=== PATIENT | male | born 1940 | race Caucasian/White ===

== ENCOUNTER 2017-01-26 11:39 | Inpatient (IN) | payer MEDICARE, BC ==
[2017-01-26] MEDS ORDERED: FUROSEMIDE 40 MG SOL IV ONE (12:00)
[2017-01-26 13:19] LABS: ALBUMIN 2.3 gm/dl (3.4-5.0); CALCIUM 8.7 mg/dl (8.5-10.1); POTASSIUM 4.5 mMol/L (3.5-5.1)
[2017-01-26] MEDS ORDERED: AZITHROMYCIN 250 MG TAB PO ONE (13:26)
[2017-01-26] MEDS ORDERED: CEFTRIAXONE 1 GM PDS ONE (13:50)
[2017-01-26] MEDS: SODIUM CHLORIDE 0.9% FLUSH 10 ML SOL IV SCH ×3 (14:05→20:33)
[2017-01-26] MEDS: CEFTRIAXONE 1 GM (PREMIX) 1 GM/50 ML SOL IV SCH (14:06)
[2017-01-26 15:25] LABS: APPEARANCE,URINE Clear; BILIRUBIN,URINE NEGATIVE (NEGATIVE); COLOR,URINE Yellow; GLUCOSE, URINE (UA) NEGATIVE (NEGATIVE); KETONES,URINE NEGATIVE (NEGATIVE); LEUKOCYTE ESTERASE ,URINE NEGATIVE (NEGATIVE); NITRATE,URINE NEGATIVE (NEGATIVE); OCCULT BLOOD,URINE TRACE INTACT (NEG-TRACE); UROBILINOGEN,URINE 0.2 (0.2-1.0 EU)
[2017-01-26 16:20] LABS: RBC,URINE 0-1 (0-3AV/HPF); WBC,URINE NEG (0-5AV/HPF)
[2017-01-26] MEDS ORDERED: ACETAMINOPHEN 500 MG 500 MG TAB PO PRN (17:52)
[2017-01-26] MEDS ORDERED: ALBUTEROL/IPRATROPIUM 1 VIAL SOL INH PRN (17:52)
[2017-01-26] MEDS ORDERED: FUROSEMIDE 20mg SOL IV ONE (17:52)
[2017-01-26] MEDS ORDERED: ALBUTEROL HFA 60 PUFF/INHALER INH PRN (17:52)
[2017-01-26] MEDS: ASPIRIN EC 81 MG PO SCH (20:33)
[2017-01-26] MEDS: FLUTICASONE INH SCH (20:34)
[2017-01-26] MEDS: SALMETEROL INH SCH (20:34)
[2017-01-26] MEDS: TAMSULOSIN HYDROCHLORIDE 0.4 MG CAP PO SCH (20:34)
[2017-01-26] MEDS: ATORVASTATIN 10 MG TAB PO SCH (20:34)
[2017-01-27] MEDS: SODIUM CHLORIDE 0.9% FLUSH 10 ML SOL IV SCH ×4 (04:34→21:53)
[2017-01-27] MEDS ORDERED: LEVOTHYROXINE SODIUM 50 MCG TAB PO SCH (06:30)
[2017-01-27 07:38] LABS: BASOPHILS % (AUTO) 0 % (0-3); EOSINOPHILS % (AUTO) 3 % (0-9); HEMATOCRIT 32 % (39-53); MEAN CORPUSCULAR VOLUME 91 fL (80-100); NEUTROPHILS % (AUTO) 84.6 % (37-80)
[2017-01-27 07:43] LABS: CALCIUM 8.5 mg/dl (8.5-10.1); POTASSIUM 4.4 mMol/L (3.5-5.1)
[2017-01-27] MEDS ORDERED: FUROSEMIDE 40 MG SOL IV SCH (09:00)
[2017-01-27] MEDS ORDERED: CALCIUM CARBONATE 500 MG TAB PO SCH (09:00)
[2017-01-27] MEDS ORDERED: POMALIDOMIDE 3 MG PO SCH (09:00)
[2017-01-27] MEDS: CALCIUM CARBONATE 500 MG TAB PO SCH (09:34)
[2017-01-27] MEDS: PREDNISONE 10 MG TAB PO SCH (09:36)
[2017-01-27] MEDS: AZITHROMYCIN 250 MG TAB PO SCH (09:36)
[2017-01-27] MEDS: ALLOPURINOL 100 MG TAB PO SCH (09:37)
[2017-01-27] MEDS: SALMETEROL INH SCH (09:37)
[2017-01-27] MEDS: FLUTICASONE INH SCH (09:37)
[2017-01-27] MEDS: FLUTICASONE/SALMETEROL 500/50 60 PUFF DSK INH SCH ×2 (09:37→21:53)
[2017-01-27] MEDS: ALBUTEROL/IPRATROPIUM 1 VIAL SOL INH SCH ×3 (13:08→21:54)
[2017-01-27] MEDS: FUROSEMIDE 40 MG SOL IV SCH (13:14)
[2017-01-27] MEDS: CEFTRIAXONE 1 GM (PREMIX) 1 GM/50 ML SOL IV SCH (13:30)
[2017-01-27] MEDS: TAMSULOSIN HYDROCHLORIDE 0.4 MG CAP PO SCH (21:53)
[2017-01-27] MEDS: ASPIRIN EC 81 MG PO SCH (21:53)
[2017-01-27] MEDS: ATORVASTATIN 10 MG TAB PO SCH (21:54)
[2017-01-28] MEDS: SODIUM CHLORIDE 0.9% FLUSH 10 ML SOL IV SCH ×4 (05:15→20:24)
[2017-01-28] MEDS: LEVOTHYROXINE SODIUM 112 MCG TAB PO SCH (06:53)
[2017-01-28 07:18] LABS: BASOPHILS % (AUTO) 0 % (0-3); EOSINOPHILS % (AUTO) 3 % (0-9); HEMATOCRIT 31 % (39-53); MEAN CORPUSCULAR HGB CONC 34.5 gm/dl (32.0-36.0); MEAN CORPUSCULAR VOLUME 91 fL (80-100); MONOCYTES % (AUTO) 4.4 % (0-12); NEUTROPHILS % (AUTO) 82.1 % (37-80)
[2017-01-28 07:23] LABS: CALCIUM 8.5 mg/dl (8.5-10.1); POTASSIUM 4.2 mMol/L (3.5-5.1)
[2017-01-28] MEDS ORDERED: MAGNESIUM HYDROXIDE 30 ML SUS PO PRN (07:59)
[2017-01-28] MEDS: ALBUTEROL/IPRATROPIUM 1 VIAL SOL INH SCH ×4 (08:37→21:04)
[2017-01-28] MEDS: CALCIUM CARBONATE 500 MG TAB PO SCH (08:39)
[2017-01-28] MEDS: ALLOPURINOL 100 MG TAB PO SCH (08:39)
[2017-01-28] MEDS: AZITHROMYCIN 250 MG TAB PO SCH (08:39)
[2017-01-28] MEDS: PREDNISONE 10 MG TAB PO SCH (08:39)
[2017-01-28] MEDS: FLUTICASONE/SALMETEROL 500/50 60 PUFF DSK INH SCH ×2 (08:40→21:02)
[2017-01-28] MEDS: FUROSEMIDE 40 MG SOL IV SCH ×2 (08:40→13:10)
[2017-01-28] MEDS: POLYETHYLENE GLYCOL 17 GM/1 TBS PDS PO SCH (09:15)
[2017-01-28] MEDS: CEFTRIAXONE 1 GM (PREMIX) 1 GM/50 ML SOL IV SCH (13:32)
[2017-01-28] MEDS: ASPIRIN EC 81 MG PO SCH (21:00)
[2017-01-28] MEDS: TAMSULOSIN HYDROCHLORIDE 0.4 MG CAP PO SCH (21:00)
[2017-01-28] MEDS: ATORVASTATIN 10 MG TAB PO SCH (21:01)
[2017-01-29] MEDS: SODIUM CHLORIDE 0.9% FLUSH 10 ML SOL IV SCH (05:39)
[2017-01-29] MEDS: LEVOTHYROXINE SODIUM 112 MCG TAB PO SCH (06:18)
[2017-01-29 07:08] LABS: BASOPHILS % (AUTO) 1 % (0-3); EOSINOPHILS % (AUTO) 6 % (0-9); HEMATOCRIT 30 % (39-53); MEAN CORPUSCULAR HGB CONC 35.1 gm/dl (32.0-36.0); MEAN CORPUSCULAR VOLUME 90 fL (80-100); MONOCYTES % (AUTO) 6.8 % (0-12); NEUTROPHILS % (AUTO) 74.4 % (37-80)
[2017-01-29 07:16] LABS: CALCIUM 8.5 mg/dl (8.5-10.1); POTASSIUM 3.9 mMol/L (3.5-5.1)
[2017-01-29] MEDS: FLUTICASONE/SALMETEROL 500/50 60 PUFF DSK INH SCH (08:54)
[2017-01-29] MEDS: POLYETHYLENE GLYCOL 17 GM/1 TBS PDS PO SCH (08:56)
[2017-01-29] MEDS: CALCIUM CARBONATE 500 MG TAB PO SCH (08:57)
[2017-01-29] MEDS: PREDNISONE 10 MG TAB PO SCH (08:58)
[2017-01-29] MEDS: ALLOPURINOL 100 MG TAB PO SCH (08:58)
[2017-01-29] MEDS: AZITHROMYCIN 250 MG TAB PO SCH (08:58)
[2017-01-29] MEDS: ALBUTEROL/IPRATROPIUM 1 VIAL SOL INH SCH (09:36)
[2017-01-29 09:46] VITALS: RESP 23; O2SAT 93
[2017-01-29] MEDS: FUROSEMIDE 40 MG SOL IV SCH (09:59)
[2017-01-29 10:15] VITALS: BP 120/83; PULSE 92; TEMP 97.8
== END 2017-01-29 13:25 | disposition home or self-care (01) | DRG 291 ==
LOC: ACUTE CARE 11:42
PROVIDERS: ADMIT Family Medicine; ATTEND Family Medicine
DX: I50.9 Heart failure, unspecified (principal); J18.9 Pneumonia, unspecified organism; J44.9 Chronic obstructive pulmonary disease, unspecified; J44.0 Chronic obstructive pulmonary disease with (acute) lower respiratory infection; M54.9 Dorsalgia, unspecified
CPT/HCPCS: 36415; 72120; 80048; 80053; 81001; 83880; 84484; 85025; 87088; 93005; 93012; 93306; 94150; 94640; 94664; J0696; J1940; J7620

== ENCOUNTER 2017-04-24 21:14 | Emergency (ER) | payer MEDICARE, BC ==
[2017-04-24] MEDS ORDERED: ALBUTEROL/IPRATROPIUM 1 VIAL SOL INH ONE ×2 (21:22→22:39)
[2017-04-24] MEDS ORDERED: SOLUMEDROL 125 MG/2 ML 125 MG/2 ML PDS ONE (21:23)
[2017-04-24] MEDS ORDERED: ALBUTEROL/IPRATROPIUM 1 VIAL SOL ONE ×2 (21:23→22:47)
[2017-04-24] MEDS ORDERED: SOLUMEDROL 125 MG/2 ML 125 MG/2 ML PDS IV ONE (21:24)
[2017-04-24 21:31] LABS: BASOPHILS % (AUTO) 0 % (0-3); EOSINOPHILS % (AUTO) 0 % (0-9); HEMATOCRIT 36 % (39-53); MEAN CORPUSCULAR HGB CONC 33.2 gm/dl (32.0-36.0); MEAN CORPUSCULAR VOLUME 96 fL (80-100); MONOCYTES % (AUTO) 6.8 % (0-12); NEUTROPHILS % (AUTO) 87.3 % (37-80)
[2017-04-24] MEDS ORDERED: SODIUM CHLORIDE 0.9% FLUSH 10 ML SOL IV PRN (21:34)
[2017-04-24 21:50] LABS: ALBUMIN 3.1 gm/dl (3.4-5.0); CALCIUM 8.8 mg/dl (8.5-10.1); POTASSIUM 5.1 mMol/L (3.5-5.1)
[2017-04-24 21:52] VITALS: TEMP 98.5
[2017-04-24 23:42] VITALS: O2SAT 100
[2017-04-24 23:44] VITALS: BP 138/89; PULSE 85; RESP 32
== END 2017-04-24 23:25 | disposition home or self-care (01) | DRG 192 ==
LOC: ED 21:14
DX: J44.1 Chronic obstructive pulmonary disease with (acute) exacerbation (principal)
CPT/HCPCS: 71046; 80053; 85025; 93005; 96374; 99284; 99285; J2930; J7620; A9270-GY

== ENCOUNTER 2018-01-07 11:22 | Inpatient (IN) | payer MEDICARE, BC ==
[2018-01-07] MEDS ORDERED: CEFTRIAXONE 1 GM PDS ONE (12:08)
[2018-01-07] MEDS ORDERED: SODIUM CHLORIDE 0.9% 50 ML 50 ML IV ONE (12:08)
[2018-01-07 12:15] LABS: HEMATOCRIT 28 % (39-53); MEAN CORPUSCULAR HEMOGLOBIN 33.7 pg (27.0-32.0); MEAN CORPUSCULAR HGB CONC 32.2 gm/dl (32.0-36.0)
[2018-01-07] MEDS: AZITHROMYCIN 250 MG TAB PO SCH (12:20)
[2018-01-07] MEDS: SOLUMEDROL 125 MG/2 ML 125 MG/2 ML PDS IV SCH ×3 (12:25→20:31)
[2018-01-07] MEDS: CEFTRIAXONE 1 GM PDS 1 GM in SODIUM CHLORIDE 0.9% 50 ML 50 ML IV SCH (12:28)
[2018-01-07 12:29] LABS: MEAN CORPUSCULAR VOLUME 105 fL (80-100)
[2018-01-07 12:30] LABS: ALBUMIN 2.3 gm/dl (3.4-5.0); BILIRUBIN,TOTAL 3.7 mg/dl (0.2-1.0); CALCIUM 7.9 mg/dl (8.5-10.1); CARBON DIOXIDE 19.8 mEq/L (21-32); CREATININE 3.93 mg/dl (0.80-1.30); TOTAL PROTEIN 5.6 gm/dl (6.4-8.2)
[2018-01-07 12:39] LABS: POTASSIUM 7.2 mMol/L (3.5-5.1)
[2018-01-07] MEDS ORDERED: CALCIUM CHLORIDE 100 MG/ML SOL IV ONE ×2 (12:48→13:51)
[2018-01-07] MEDS: ALBUTEROL/IPRATROPIUM 1 VIAL SOL INH SCH ×2 (12:51→18:09)
[2018-01-07] MEDS ORDERED: SODIUM POLYSTYRENE SULFONATE 15 GM/60 ML SUS PO SCH (13:00)
[2018-01-07] MEDS ORDERED: INSULIN HUMAN REGULAR 100 U/ML SOL IV SCH (13:00)
[2018-01-07] MEDS ORDERED: FUROSEMIDE 100 MG SOL IV SCH (13:00)
[2018-01-07] MEDS ORDERED: DEXTROSE 50% 1 VIAL SOL IV SCH (13:00)
[2018-01-07 13:01] LABS: BAND NEUTROPHILS % (MANUAL) 11 %; BASOPHILS % (MANUAL) 0 % (0-3); EOSINOPHILS % (MANUAL) 1 % (0-9); LYMPHOCYTES % (MANUAL) 2 % (10-50); METAMYELOCYTES%(MANUAL) 2; MONOCYTES % (MANUAL) 3 % (0-12); NEUTROPHILS % (MANUAL) 81 % (37-80)
[2018-01-07 13:02] LABS: ANISOCYTOSIS SLIGHT AMT
[2018-01-07] MEDS ORDERED: PATIENT EDUCATION 1 MISC PRN (13:25)
[2018-01-07] MEDS: SODIUM CHLORIDE 0.9% FLUSH 10 ML SOL IV SCH ×3 (13:33→20:33)
[2018-01-07] MEDS: SODIUM CHLORIDE 0.45% 1000 ML 1,000 ML IV SCH ×2 (14:45→21:09)
[2018-01-07] MEDS ORDERED: ACETAMINOPHEN 500 MG 500 MG TAB PO PRN (17:25)
[2018-01-07] MEDS ORDERED: OXYCODONE HYDROCHLORIDE 5 MG TAB PO PRN (17:25)
[2018-01-07] MEDS: ONDANSETRON HCL 4 MG TAB PO PRN (18:17)
[2018-01-07] MEDS: SODIUM POLYSTYRENE SULFONATE 15 GM/60 ML SUS PO SCH (18:34)
[2018-01-07] MEDS: ATORVASTATIN 10 MG TAB PO SCH (20:30)
[2018-01-07] MEDS: TAMSULOSIN HYDROCHLORIDE 0.4 MG CAP PO SCH (21:04)
[2018-01-08] MEDS: SODIUM POLYSTYRENE SULFONATE 15 GM/60 ML SUS PO SCH ×2 (00:14→05:54)
[2018-01-08] MEDS: ALBUTEROL/IPRATROPIUM 1 VIAL SOL INH SCH ×4 (00:15→17:19)
[2018-01-08] MEDS ORDERED: SODIUM CHLORIDE 0.45% 1000 ML 1,000 ML IV SCH (01:31)
[2018-01-08] MEDS: SODIUM CHLORIDE 0.9% FLUSH 10 ML SOL IV SCH ×4 (05:54→20:20)
[2018-01-08] MEDS ORDERED: LEVOTHYROXINE SODIUM 50 MCG TAB PO SCH (07:00)
[2018-01-08 07:36] LABS: CALCIUM 8.1 mg/dl (8.5-10.1); CARBON DIOXIDE 18.5 mEq/L (21-32); CREATININE 4.37 mg/dl (0.80-1.30); POTASSIUM 5.5 mMol/L (3.5-5.1)
[2018-01-08] MEDS ORDERED: SODIUM CHLORIDE 0.9% 50 ML 50 ML IV ONE (08:18)
[2018-01-08] MEDS ORDERED: CEFTRIAXONE 1 GM PDS ONE (08:18)
[2018-01-08] MEDS: SOLUMEDROL 125 MG/2 ML 125 MG/2 ML PDS IV SCH ×3 (08:25→20:21)
[2018-01-08] MEDS: AZITHROMYCIN 250 MG TAB PO SCH (08:26)
[2018-01-08] MEDS: ALLOPURINOL 100 MG TAB PO SCH (08:26)
[2018-01-08] MEDS: CEFTRIAXONE 1 GM PDS 1 GM in SODIUM CHLORIDE 0.9% 50 ML 50 ML IV SCH (08:27)
[2018-01-08] MEDS: LEVOTHYROXINE SODIUM 112 MCG TAB PO SCH (12:22)
[2018-01-08] MEDS ORDERED: SODIUM CHLORIDE 0.9% 500 ML 500 ML IV ONE (14:50)
[2018-01-08] MEDS: SODIUM CHLORIDE 0.45% 1000 ML 1,000 ML IV SCH (17:22)
[2018-01-08] MEDS ORDERED: SODIUM POLYSTYRENE SULFONATE 15 GM/60 ML SUS PO PRN (17:39)
[2018-01-08] MEDS: TAMSULOSIN HYDROCHLORIDE 0.4 MG CAP PO SCH (20:21)
[2018-01-08] MEDS: ATORVASTATIN 10 MG TAB PO SCH (20:21)
[2018-01-09] MEDS: ALBUTEROL NEB SOL 2.5MG/3ML 1 VIAL SOL NEB PRN ×3 (03:25→21:54)
[2018-01-09] MEDS: SODIUM CHLORIDE 0.9% FLUSH 10 ML SOL IV SCH ×6 (03:33→21:49)
[2018-01-09] MEDS: ALBUTEROL/IPRATROPIUM 1 VIAL SOL INH SCH ×4 (06:07→18:27)
[2018-01-09] MEDS: LEVOTHYROXINE SODIUM 112 MCG TAB PO SCH (06:40)
[2018-01-09 07:36] LABS: BASOPHILS % (AUTO) 0 % (0-3); EOSINOPHILS % (AUTO) 0 % (0-9); HEMATOCRIT 24 % (39-53); LYMPHOCYTES % (AUTO) 1.1 % (10-50); MEAN CORPUSCULAR HEMOGLOBIN 33.9 pg (27.0-32.0); MEAN CORPUSCULAR HGB CONC 33.1 gm/dl (32.0-36.0); MONOCYTES % (AUTO) 1.8 % (0-12)
[2018-01-09 07:42] LABS: MEAN CORPUSCULAR VOLUME 102 fL (80-100)
[2018-01-09 07:45] LABS: ALBUMIN 2.1 gm/dl (3.4-5.0); BILIRUBIN,TOTAL 0.5 mg/dl (0.2-1.0); CALCIUM 7.4 mg/dl (8.5-10.1); CARBON DIOXIDE 16.8 mEq/L (21-32); CREATININE 3.65 mg/dl (0.80-1.30); POTASSIUM 4.6 mMol/L (3.5-5.1); TOTAL PROTEIN 5.3 gm/dl (6.4-8.2)
[2018-01-09] MEDS ORDERED: FUROSEMIDE 40 MG SOL IV SCH (09:00)
[2018-01-09] MEDS ORDERED: CEFTRIAXONE 1 GM PDS ONE (09:08)
[2018-01-09] MEDS: AZITHROMYCIN 250 MG TAB PO SCH (10:01)
[2018-01-09] MEDS: ALLOPURINOL 100 MG TAB PO SCH (10:02)
[2018-01-09] MEDS: PREDNISONE 20 MG TAB PO SCH (10:09)
[2018-01-09] MEDS: CEFTRIAXONE 1 GM PDS 1 GM in SODIUM CHLORIDE 0.9% 50 ML 50 ML IV SCH (10:10)
[2018-01-09] MEDS: ONDANSETRON HCL 4 MG TAB PO PRN (10:20)
[2018-01-09] MEDS: SODIUM CHLORIDE 0.45% 1000 ML 1,000 ML IV SCH ×3 (15:10→15:11)
[2018-01-09] MEDS: FUROSEMIDE 40 MG SOL IV SCH (18:23)
[2018-01-09] MEDS: ATORVASTATIN 10 MG TAB PO SCH (21:45)
[2018-01-09] MEDS: TAMSULOSIN HYDROCHLORIDE 0.4 MG CAP PO SCH (21:46)
[2018-01-10] MEDS: ALBUTEROL/IPRATROPIUM 1 VIAL SOL INH SCH ×3 (00:46→11:43)
[2018-01-10] MEDS: SODIUM CHLORIDE 0.9% FLUSH 10 ML SOL IV SCH (05:47)
[2018-01-10] MEDS: LEVOTHYROXINE SODIUM 112 MCG TAB PO SCH (06:52)
[2018-01-10 07:17] LABS: BASOPHILS % (AUTO) 0 % (0-3); EOSINOPHILS % (AUTO) 0 % (0-9); HEMATOCRIT 26 % (39-53); HEMOGLOBIN 8.3 gm/dl (13.5-17.7); LYMPHOCYTES % (AUTO) 1.6 % (10-50); MEAN CORPUSCULAR HEMOGLOBIN 33.2 pg (27.0-32.0); MEAN CORPUSCULAR HGB CONC 32.3 gm/dl (32.0-36.0); MONOCYTES % (AUTO) 2.9 % (0-12); NEUTROPHILS % (AUTO) 95.3 % (37-80)
[2018-01-10 07:24] LABS: MEAN CORPUSCULAR VOLUME 103 fL (80-100)
[2018-01-10 07:35] LABS: ALBUMIN 2.2 gm/dl (3.4-5.0); BILIRUBIN,TOTAL 0.4 mg/dl (0.2-1.0); CALCIUM 7.6 mg/dl (8.5-10.1); CARBON DIOXIDE 19.1 mEq/L (21-32); CREATININE 3.49 mg/dl (0.80-1.30); POTASSIUM 4.5 mMol/L (3.5-5.1); TOTAL PROTEIN 5.3 gm/dl (6.4-8.2)
[2018-01-10 08:12] VITALS: BP 152/90; TEMP 97.6
[2018-01-10] MEDS ORDERED: CEFTRIAXONE 1 GM PDS ONE (09:01)
[2018-01-10] MEDS ORDERED: SODIUM CHLORIDE 0.9% 50 ML 50 ML IV ONE (09:01)
[2018-01-10] MEDS: FUROSEMIDE 40 MG SOL IV SCH (09:12)
[2018-01-10] MEDS: AZITHROMYCIN 250 MG TAB PO SCH (09:13)
[2018-01-10] MEDS: PREDNISONE 20 MG TAB PO SCH (09:13)
[2018-01-10] MEDS: CEFTRIAXONE 1 GM PDS 1 GM in SODIUM CHLORIDE 0.9% 50 ML 50 ML IV SCH (09:13)
[2018-01-10] MEDS: ALLOPURINOL 100 MG TAB PO SCH (09:14)
[2018-01-10] MEDS: ALBUTEROL NEB SOL 2.5MG/3ML 1 VIAL SOL NEB PRN (09:29)
[2018-01-10 11:44] VITALS: RESP 22
[2018-01-10 14:25] VITALS: PULSE 72; O2SAT 94
== END 2018-01-10 14:05 | disposition home or self-care (01) | DRG 191 ==
LOC: ACUTE CARE 11:36
PROVIDERS: ADMIT Family Medicine; ATTEND Family Medicine
DX: J44.1 Chronic obstructive pulmonary disease with (acute) exacerbation (principal); I50.22 Chronic systolic (congestive) heart failure; N17.9 Acute kidney failure, unspecified; E11.9 Type 2 diabetes mellitus without complications; R06.02 Shortness of breath; E87.5 Hyperkalemia; R94.5 Abnormal results of liver function studies
CPT/HCPCS: 36415; 51798; 71045; 80048; 80053; 83880; 84132; 85007; 85025; 85027; 87040; 87186; 87205; 93005; 93012; 94150; 94640; 94664; 99070; J0696; J1815; J1940; J2930; J7613; A9270-GY; J3490